=== PATIENT | male | born 1995 | race Caucasian/White ===

== ENCOUNTER 2024-02-17 06:07 | Emergency (ER) | payer OTHER ==
--- NOTE | 2024-02-17 07:21 | ED Physician Documentation ---
PD HPI LOWER EXT INJURY - Stated complaint Stated Complaint: LT KNEE INJ - Chief complaint Chief Complaint: Trauma Ext - History obtained from History obtained from: Patient - History of Present Illness PD HPI LOW EXT INJURY LOCATION: Left, Knee Type of injury: Twist (he was jumping over the catcher coming into home plate and landed onto foot/knee twisted, he thinks valgus. Pain with walking right off and still today, barely weight bearing.) Where injury occurred: Other (baseball field last evening.) Timing - onset: Yesterday Review of Systems Neurologic: denies: Focal weakness, Numbness PD PAST MEDICAL HISTORY - Past Medical History Past Medical History: No - Past Surgical History Past Surgical History: No - Present Medications Home Medications: Ambulatory Orders Medication Instructions Recorded Confirmed No Known Home Medications 02/17/24 02/17/24 - Allergies Allergies/Adverse Reactions: Allergies Allergy/AdvReac Type Severity Reaction Status Date / Time No Known Drug Allergies Allergy Verified 02/17/24 06:16 - Social History Does the pt smoke?: No Smoking Status: Never smoker PD ED PE NORMAL - Vitals Vital signs reviewed: Yes - General General: Alert and oriented X 3, No acute distress (but I did not see him try to walk. was into room in wheelchair. ), Well developed/nourished - Derm Derm: Normal color, Warm and dry - Extremities Extremities: Other (left knee tender anteriorly. Pain with straight leg raise but he does have engagement of patellar tendon. No softness noted. Minimal effusion. Pain without notable gross laxity with valgus. Not painful with cruciate testing. Does hurt with grind test. Consdier MCL, meniscal or just patellar tendon a) - Neuro Neuro: Alert and oriented X 3, No motor deficit, No sensory deficit Results - Vitals Vitals: Oxygen O2 Source Room air - Rads (name of study) left knee Relevant Findings:: Prelim report reviewed, EMP independent interpretation of test (no fractures. no bony abnormality. ) PD Medical Decision Making - ED course Complexity details: reviewed results (xray is okay. Exam seems mostly extensor tendon strain without rutpture. Ligament testing of knee without laxity, and only valgus hurts some. To recheck in a week or so.), considered differential (landed onto foot with jumping motion and had twisting of knee. Pain anteriorly mostly and hurts with extension. Tender below the kneecap without obvious laxity nor softness of tendon. Some pain with valgus but no laxity. Does not seem cruciate and minimal effusion, seeming less likely for meniscal.), d/w patient Departure - Departure Disposition: 01 Home, Self Care Clinical Impression: Knee sprain, Patellar tendon strain Condition: Stable Record reviewed to determine appropriate education?: Yes Instructions: ED Sprain Knee [facility] Comments: Use the knee brace when up and around. This will allow slight flexion of the knee but provide limited flexion extension and provide rotational support. Initially crutches as needed for nonweightbearing. As the pain decreases partial weightbearing is okay. [facility] in about a week, call for an appointment. If the pain decreases reasonably short of that, you can go with noncrutches but still have the knee brace with any weightbearing. Ibuprofen 3 times daily. Add Tylenol every 4-6 hours if needed. Light duty for the next week. Forms: PCP List, Activity restrictions Discharge Date/Time: 02/17/24 08:30
[2024-02-17] MEDS ORDERED: IBUPROFEN 600 MG TABLET PO STA (07:51)
[2024-02-17] MEDS ORDERED: ACETAMINOPHEN 325 MG TABLET PO STA (07:51)
--- NOTE | 2024-02-17 08:20 | XRAY Report ---
PROCEDURE: Knee 4+V LT INDICATIONS: trauma TECHNIQUE: 3 views of the knee(s) were acquired. COMPARISON: None. FINDINGS: Bones: No fractures or dislocations. No patella subluxation. No suspicious bony lesions. Soft tissues: No significant knee joint effusion. No suspicious soft tissue calcifications or masses . IMPRESSION: No acute bony abnormality. Findings are concordant with preliminary interpretation provided by [facility]. Reviewed by: Christiano Arteaga MD on 02/17/2024 8:19 AM PDT Approved by: Christiano Arteaga MD on 02/17/2024 8:19 AM PDT Station ID: [id number]
[2024-02-17 08:54] VITALS: BP 136/82; O2SAT 100
== END 2024-02-17 08:30 | disposition home or self-care (01) ==
LOC: ED 06:07
DX: S83.92XA Sprain of unspecified site of left knee, initial encounter (principal); S76.112A Strain of left quadriceps muscle, fascia and tendon, initial encounter; X50.1XXA Overexertion from prolonged static or awkward postures, initial encounter; Y93.64 Activity, baseball
CPT/HCPCS: 99283